=== PATIENT | female | born 1945 | race Two or more races ===

== ENCOUNTER → 2016-10-12 | Outpatient (CLI) | payer OTHER | LOC: FIMAGING 13:39 | DX: Z12.31 Encounter for screening mammogram for malignant neoplasm of breast (principal); Z85.3 Personal history of malignant neoplasm of breast | CPT/HCPCS: G0202 ==

== ENCOUNTER → 2017-08-08 | Outpatient (CLI) | payer OTHER ==
[~2017-08-08] MED LIST: GADOBUTROL 10 ML VIAL IVP ONE
== END ==
LOC: FIMAGING 08-07 12:27
PROVIDERS: ATTEND Internal Medicine Hematology & Oncology
DX: Z09 Encounter for follow-up examination after completed treatment for conditions other than malignant neoplasm (principal); D32.9 Benign neoplasm of meninges, unspecified
CPT/HCPCS: 70553; A9585

== ENCOUNTER → 2018-03-08 | Outpatient (CLI) | payer OTHER | LOC: FIMAGING 13:21 | PROVIDERS: ATTEND Physician Assistant | DX: N63.12 Unspecified lump in the right breast, upper inner quadrant (principal); N60.01 Solitary cyst of right breast; Z85.3 Personal history of malignant neoplasm of breast; Z85.118 Personal history of other malignant neoplasm of bronchus and lung ==